=== PATIENT | female | born 1985 | race Caucasian/White ===

== ENCOUNTER 2018-05-05 09:48 | Emergency (ER) | payer MEDICAID ==
[~2018-05-05] VITALS: Ht 167.6 cm; Wt 68.0 kg
--- NOTE | 2018-05-05 10:14 | NUR ---
Dr Esquivel at the bedside for MSE.
[2018-05-05] MEDS ORDERED: HYDROCODONE/APAP 10-325 MG TABLET PO ONE (10:30)
[2018-05-05] MEDS ORDERED: HYDROCODONE/APAP 10-325 MG TABLET ONE (10:43)
[2018-05-05 10:50] LABS: CARBON DIOXIDE 29 mmol/L (21-32); CHLORIDE 104 mmol/L (98-107); CREATININE 0.8 mg/dL (0.6-1.3); GLUCOSE 94 mg/dL (74-106); POTASSIUM 4.4 mmol/L (3.5-5.1); UREA NITROGEN, BLOOD 19 mg/dL (7-18)
[2018-05-05 10:53] LABS: BASOPHILS # (AUTO) 0.1 K/uL (0.0-8.0); BASOPHILS % (AUTO) 0.9 % (0.0-2.0); EOSINOPHILS # (AUTO) 0.1 K/uL (0.0-0.7); EOSINOPHILS % (AUTO) 0.9 % (0.0-7.0); HEMATOCRIT 40.6 % (31.2-41.9); HEMOGLOBIN 13.6 g/dL (10.9-14.3); LYMPHOCYTES # (AUTO) 2.2 K/uL (20.0-40.0); LYMPHOCYTES % (AUTO) 26.7 % (20.5-51.5); MEAN CORPUSCULAR HEMOGLOBIN 30.6 uug (24.7-32.8); MEAN CORPUSCULAR HGB CONC 34 g/dL (32.3-35.6); MEAN CORPUSCULAR VOLUME 91.4 fL (75.5-95.3); MONOCYTES # (AUTO) 0.6 K/uL (2.0-10.0); MONOCYTES % (AUTO) 6.8 % (0.0-11.0); NEUTROPHILS # (AUTO) 5.4 K/uL (1.8-8.9); NEUTROPHILS % (AUTO) 64.7 % (38.5-71.5); PLATELET COUNT (AUTO) 315 K/uL (179-408); RED BLOOD CELL COUNT(AUTO) 4.44 MIL/uL (3.63-4.92); WHITE BLOOD COUNT (AUTO) 8.4 K/uL (3.8-11.8)
[2018-05-05 10:56] LABS: *BILIRUBIN,URIN NEGATIVE (NEGATIVE); *BLOOD, URINE Trace-intact (NEGATIVE); *CLARITY,URINE CLEAR (CLEAR); *COLOR,URINE YELLOW (YELLOW); *KETONES,URINE NEGATIVE (NEGATIVE); *PROTEIN,URINE NEGATIVE (NEGATIVE); *UROBILINOGEN,URINE 0.2 E.U./dl (NORMAL); ALANINE AMINOTRANSFERASE 17 U/L (14-59); ALKALINE PHOSPHATASE 60 U/L (50-136); ASPARTATE AMINOTRANSFERASE 14 U/L (15-37); BILIRUBIN,DIRECT < 0.1 mg/dL (0.0-0.2); BILIRUBIN,TOTAL 0.2 mg/dL (0.2-1.0); LEUKOCYTE ESTERASE ,URINE NEGATIVE (NEGATIVE); NITRITE, URINE NEGATIVE (NEGATIVE); TOTAL PROTEIN, SERUM 7.7 g/dL (6.4-8.2); UGLUCOSE NEGATIVE (NEGATIVE)
--- NOTE | 2018-05-05 11:00 | NUR ---
Female scallop cutter accompanied female patient for ([employer] tech).
[2018-05-05 11:04] LABS: BACTERIA,URINE FEW /HPF (NONE SEEN); WBC,URINE 0-3 /HPF (0-3)
[2018-05-05 11:05] LABS: MUCUS,URINE MODERATE /LPF (0-FEW); SQUAMOUS EPITHELIAL CELL,UR MODERATE /HPF (NONE SEEN)
[2018-05-05 12:01] LABS: *URINE HCG, QUAL NEGATIVE (NEGATIVE)
[2018-05-05] MEDS ORDERED: SWABABLE VALVE TRANSFER SET EA MC ONE (12:10)
[2018-05-05] MEDS ORDERED: IV NORMAL SALINE 250 ML IV ONE (12:10)
[2018-05-05] MEDS ORDERED: NORMAL SALINE FLUSH 10 ML DISP.SYRIN ONE (12:10)
[2018-05-05] MEDS ORDERED: IOHEXOL 300MG/ML 100 ML INFUS..BTL ONE (12:10)
--- NOTE | 2018-05-05 12:16 | NUR ---
Pt signed consent for IV contrast, placed in the chart.
--- NOTE | 2018-05-05 13:23 | NUR ---
Female winterizer accompanied female patient for (dr jacome).
[2018-05-05] MEDS ORDERED: CEFTRIAXONE 500 MG VIAL IM ONE (13:30)
[2018-05-05] MEDS ORDERED: AZITHROMYCIN 250 MG TABLET PO ONE (13:30)
[2018-05-05] MEDS ORDERED: LIDOCAINE HCL 1% 20 ML VIAL ONE (13:36)
[2018-05-05] MEDS ORDERED: CEFTRIAXONE 500 MG VIAL ONE (13:36)
[2018-05-05] MEDS ORDERED: AZITHROMYCIN 250 MG TABLET ONE (13:36)
--- NOTE | 2018-05-05 13:41 | NUR ---
IV removed. Catheter intact and site benign. Pressure and 4x4 gauze applied to site. No bleeding noted.
[2018-05-05 13:42] VITALS: BP 131/77
--- NOTE | 2018-05-05 13:43 | NUR ---
Patient discharged to home in stable conditon. Written and verbal after care instructions given. Patient verbalizes understanding of instructions.
== END 2018-05-05 13:43 | disposition home or self-care (01) ==
LOC: ER 09:48
DX: R10.31 Right lower quadrant pain (principal)
CPT/HCPCS: 36415; 74177; 76856; 80048; 80076; 81001; 84703; 85025; 87210; 96372; 99285; A4663; J0696; J3490 ×2; J7050; Q0144; Q9967

== ENCOUNTER 2021-05-31 09:48 | Emergency (ER) | payer MEDICAID ==
[~2021-05-31] VITALS: Ht 167.6 cm; Wt 72.6 kg
[2021-05-31] MEDS ORDERED: AMOX-430 PO (11:02)
== END 2021-05-31 11:42 | disposition home or self-care (01) ==
LOC: ER 09:48
DX: J06.9 Acute upper respiratory infection, unspecified (principal); H92.03 Otalgia, bilateral; Z20.822 Contact with and (suspected) exposure to COVID-19; R03.0 Elevated blood-pressure reading, without diagnosis of hypertension
CPT/HCPCS: 99283; U0003; A4663